=== PATIENT | female | born 1995 | race African-American/Black ===

== ENCOUNTER 2016-07-17 20:56 | Emergency (ER) | payer MEDICAID ==
[~2016-07-17] VITALS: Ht 167.6 cm; Wt 75.0 kg
[~2016-07-17 20:56] MED LIST: FERR-43 PO; PREN-88 PO
[2016-07-17] MEDS ORDERED: IBUPROFEN 600MG TABLET PO STA (23:07)
[2016-07-17] MEDS ORDERED: HYDROCODONE/ACETAMINOPHEN 5/325MG TABLET PO STA (23:07)
[2016-07-17] MEDS ORDERED: ONDANSETRON HCL 4MG TABLET PO ONE (23:15)
[2016-07-17] MEDS ORDERED: IBUPROFEN 800MG TABLET PO NR (23:24)
[2016-07-17 23:27] LABS: BASOPHILS % 1.2 % (0.0-2.0); EOSINOPHILS % 2.1 % (0.0-5.0); HEMATOCRIT. 36.6 % (36.0-48.0); HEMOGLOBIN. 12.2 g/dL (12.0-16.0); LYMPHOCYTES % 40.5 % (20.0-50.0); MEAN CORPUSCULAR HEMOGLOBIN 24.5 pg (28.0-32.0); MEAN CORPUSCULAR VOLUME 73.4 fL (81.0-99.0); MEAN PLATELET VOLUME 7.8 fl (7.4-10.4); MONOCYTES % 5.9 % (2.0-8.0); NEUTROPHILS % 50.3 % (40.0-76.0); PLATELET 373 x1000/uL (130-400); RED BLOOD CELL COUNT 4.98 mill/uL (4.2-5.4); RED CELL DISTRIBUTION WIDTH 15.1 % (11.6-14.6)
[2016-07-17 23:31] LABS: CHLORIDE 106 mEq/L (98-107)
[2016-07-17 23:37] LABS: CLARITY URINE CLOUDY (CLEAR); COLOR URINE ORANGE (YELLOW); GLUCOSE URINE NEGATIVE (NEGATIVE); KETONES URINE NEGATIVE (NEGATIVE); LEUKOCYTE ESTERASE URINE 1+ (NEGATIVE); NITRITE URINE NEGATIVE (NEGATIVE); OCCULT BLOOD URINE 3+ (NEGATIVE); PH URINE 5.5 (4.5-8.0); PROTEIN URINE 2+ (NEGATIVE); SPECIFIC GRAVITY URINE 1.036 (1.005-1.030)
[2016-07-17 23:42] LABS: B-HCG QUANTITATIVE < 1 mIU/mL (<3); CARBON DIOXIDE 28 mEq/L (21-32)
[2016-07-18 00:24] VITALS: BP 127/71
== END 2016-07-18 00:46 | disposition home or self-care (01) ==
LOC: ER 21:16
DX: N39.0 Urinary tract infection, site not specified (principal); J45.909 Unspecified asthma, uncomplicated; Z91.018 Allergy to other foods; Z87.19 Personal history of other diseases of the digestive system
CPT/HCPCS: 36415; 80053; 81001; 81025; 84702; 85025; 99284; Q0162; Z7610

== ENCOUNTER 2016-11-07 09:40 | Emergency (ER) | payer MEDICAID ==
[~2016-11-07] VITALS: Ht 162.6 cm; Wt 97.0 kg
[2016-11-07] MEDS ORDERED: METOCLOPRAMIDE HCL 5MG TABLET PO ONE (11:45)
[2016-11-07] MEDS ORDERED: FLUORESCEIN SODIUM 1MG/STRIP OP ONE (11:45)
[2016-11-07] MEDS ORDERED: TETRACAINE 0.5% OPHTH DROPS 4ML OP ONE (11:45)
[2016-11-07] MEDS ORDERED: KETOROLAC 60MG/2ML VIAL IM ONE (11:45)
[2016-11-07 12:42] VITALS: BP 101/63
== END 2016-11-07 14:17 | disposition home or self-care (01) ==
LOC: ER 10:51
DX: R51 Headache (principal); J45.909 Unspecified asthma, uncomplicated; Z90.49 Acquired absence of other specified parts of digestive tract
CPT/HCPCS: 81025; 96372; 99283; J1885; Z7610; J8597

== ENCOUNTER 2017-02-07 21:23 | Emergency (ER) | payer MEDICAID ==
[~2017-02-07] VITALS: Ht 162.6 cm; Wt 102.5 kg
[2017-02-07 22:31] VITALS: BP 117/81
[2017-02-07] MEDS ORDERED: PREDNISOLONE 15 MG/5 ML ORAL SYRINGE PO ONE (23:30)
[2017-02-07] MEDS ORDERED: KETOROLAC 60MG/2ML VIAL IM ONE (23:30)
== END 2017-02-08 00:31 | disposition home or self-care (01) ==
LOC: ER 21:23
DX: J02.8 Acute pharyngitis due to other specified organisms (principal); J45.909 Unspecified asthma, uncomplicated; Z90.49 Acquired absence of other specified parts of digestive tract
CPT/HCPCS: 87070; 87430; 96372; 99284; J1885

== ENCOUNTER 2017-04-08 11:53 | Emergency (ER) | payer MEDICAID ==
[~2017-04-08] VITALS: Ht 165.1 cm; Wt 110.0 kg
[2017-04-08 13:04] LABS: CLARITY URINE CLOUDY (CLEAR); COLOR URINE DARK YELLOW (YELLOW); KETONES URINE 1+ (NEGATIVE); LEUKOCYTE ESTERASE URINE TRACE (NEGATIVE); NITRITE URINE NEGATIVE (NEGATIVE); OCCULT BLOOD URINE 3+ (NEGATIVE); PH URINE 5.5 (4.5-8.0); PROTEIN URINE 1+ (NEGATIVE); SPECIFIC GRAVITY URINE 1.038 (1.005-1.030)
[2017-04-08] MEDS ORDERED: KETOROLAC 60MG/2ML VIAL IM ONE (13:45)
[2017-04-08] MEDS ORDERED: CEPHALEXIN 500MG CAPSULE PO ONE (13:45)
[2017-04-08 14:10] VITALS: BP 135/77
== END 2017-04-08 14:25 | disposition home or self-care (01) ==
LOC: ER 12:18
DX: N10 Acute pyelonephritis (principal); J45.909 Unspecified asthma, uncomplicated; Z90.49 Acquired absence of other specified parts of digestive tract
CPT/HCPCS: 81003; 81025; 96372; 99283; J1885

== ENCOUNTER 2017-06-16 23:16 | Emergency (ER) | payer MEDICAID ==
[~2017-06-16] VITALS: Ht 167.6 cm; Wt 102.0 kg
[2017-06-17] MEDS ORDERED: KETOROLAC 60MG/2ML VIAL IM ONE (05:15)
[2017-06-17 08:00] VITALS: BP 102/50
== END 2017-06-17 08:20 | disposition home or self-care (01) ==
LOC: ER 23:16
DX: S00.03XA Contusion of scalp, initial encounter (principal); S80.01XA Contusion of right knee, initial encounter; J45.909 Unspecified asthma, uncomplicated; V89.2XXA Person injured in unspecified motor-vehicle accident, traffic, initial encounter; W22.12XA Striking against or struck by front passenger side automobile airbag, initial encounter; Y93.89 Activity, other specified; Y92.89 Other specified places as the place of occurrence of the external cause; Y99.8 Other external cause status
CPT/HCPCS: 71045; 73502; 81025; 96372; 99284; J1885

== ENCOUNTER 2017-11-10 22:01 | Inpatient (IN) | payer MEDICAID ==
[~2017-11-10] VITALS: Ht 172.7 cm; Wt 130.6 kg
[~2017-11-10 22:01] MED LIST changes: -FERR-43 PO; +HYDR-4134 PO; +IBUP-2029 MT; -PREN-88 PO
[2017-11-11] MEDS ORDERED: KETOROLAC 60MG/2ML VIAL IM ONE
[2017-11-11] MEDS ORDERED: ONDANSETRON HCL 4MG/2ML INJ IV STA (01:16)
[2017-11-11] MEDS ORDERED: MORPHINE SULFATE 4 MG/ML CPJ (NOT FOR IM USE) IV STA (01:16)
[2017-11-11] MEDS ORDERED: SODIUM CHLORIDE 0.9% 1,000 ML IV ONE (01:16)
[2017-11-11 02:03] LABS: BASOPHILS % 0.4 % (0.0-2.0); EOSINOPHILS % 1.7 % (0.0-5.0); HEMATOCRIT. 35.1 % (36.0-48.0); HEMOGLOBIN. 11.7 g/dL (12.0-16.0); LYMPHOCYTES % 26.8 % (20.0-50.0); MEAN CORPUSCULAR HEMOGLOBIN 25.3 pg (28.0-32.0); MEAN CORPUSCULAR VOLUME 75.7 fL (81.0-99.0); MEAN PLATELET VOLUME 7.7 fl (7.4-10.4); MONOCYTES % 6.5 % (2.0-8.0); NEUTROPHILS % 64.6 % (40.0-76.0); PLATELET 352 x1000/uL (130-400); RED BLOOD CELL COUNT 4.64 mill/uL (4.2-5.4); RED CELL DISTRIBUTION WIDTH 14.8 % (11.6-14.6)
[2017-11-11 02:13] LABS: CHLORIDE 108 mEq/L (98-107)
[2017-11-11 02:22] LABS: HCG SCREEN NEGATIVE
[2017-11-11 02:56] LABS: CLARITY URINE TURBID (CLEAR); COLOR URINE DARK YELLOW (YELLOW); KETONES URINE TRACE (NEGATIVE); LEUKOCYTE ESTERASE URINE 2+ (NEGATIVE); NITRITE URINE NEGATIVE (NEGATIVE); OCCULT BLOOD URINE 3+ (NEGATIVE); PH URINE 5.5 (4.5-8.0); PROTEIN URINE 2+ (NEGATIVE); SPECIFIC GRAVITY URINE 1.027 (1.005-1.030)
[2017-11-11 03:30] VITALS: BP 122/54
[2017-11-11 04:00] VITALS: BP 102/54
[2017-11-11] MEDS ORDERED: HYDROCODONE/ACETAMINOPHEN 5/325MG TABLET PO PRN (07:15)
[2017-11-11] MEDS ORDERED: ACETAMINOPHEN 325MG TABLET PO PRN (07:15)
[2017-11-11] MEDS ORDERED: ONDANSETRON HCL 4MG/2ML INJ IV PRN (07:15)
[2017-11-11] MEDS ORDERED: PNEUMOCOCCAL 23-VAL P-SAC VAC 0.5 ML IM ONE (08:00)
[2017-11-11] MEDS ORDERED: INFLUENZA VIRUS VACCINE(AFLURIA) 0.5ML SYR IM ONE (10:00)
[2017-11-11] MEDS: ENOXAPARIN 40MG/0.4ML SYR SUBCUT SCH ×2 (10:07→21:31)
[2017-11-11] MEDS: MORPHINE SULFATE 4 MG/ML CPJ (NOT FOR IM USE) IV PRN ×2 (10:35→21:39)
[2017-11-11 14:53] LABS: *AMPHETAMINES SCREEN URINE NEGATIVE (NEGATIVE); *BARBITURATES SCREEN URINE NEGATIVE (NEGATIVE); *BENZODIAZEPINES SCREEN URINE NEGATIVE (NEGATIVE); *COCAINE SCREEN URINE NEGATIVE (NEGATIVE); METHADONE URINE SCREEN NEGATIVE (NEGATIVE); OPIATES URINE SCREEN NEGATIVE (NEGATIVE)
[2017-11-11 14:54] LABS: CANNABINOID URINE SCREEN NEGATIVE (NEGATIVE); PHENCYCLIDINE URINE SCREEN NEGATIVE (NEGATIVE)
[2017-11-11 16:00] VITALS: BP 100/47
[2017-11-11 20:00] VITALS: BP 111/62
[2017-11-12] VITALS: BP 106/65
[2017-11-12 04:00] VITALS: BP 116/65
[2017-11-12] MEDS: MORPHINE SULFATE 4 MG/ML CPJ (NOT FOR IM USE) IV PRN ×2 (04:43→10:29)
[2017-11-12 07:44] LABS: BASOPHILS % 0.4 % (0.0-2.0); EOSINOPHILS % 3.1 % (0.0-5.0); HEMATOCRIT. 31.4 % (36.0-48.0); HEMOGLOBIN. 10.5 g/dL (12.0-16.0); LYMPHOCYTES % 45.4 % (20.0-50.0); MEAN CORPUSCULAR HEMOGLOBIN 25.4 pg (28.0-32.0); MEAN CORPUSCULAR VOLUME 75.9 fL (81.0-99.0); MEAN PLATELET VOLUME 7.9 fl (7.4-10.4); MONOCYTES % 5.1 % (2.0-8.0); PLATELET 324 x1000/uL (130-400); RED BLOOD CELL COUNT 4.14 mill/uL (4.2-5.4)
[2017-11-12 08:00] VITALS: BP 103/50
[2017-11-12 08:45] LABS: CHLORIDE 106 mEq/L (98-107)
[2017-11-12] MEDS: ENOXAPARIN 40MG/0.4ML SYR SUBCUT SCH (10:15)
[2017-11-12 12:00] VITALS: BP 106/55
[2017-11-12 12:38] VITALS: BP 106/55
== END 2017-11-12 15:56 | disposition home or self-care (01) | DRG 347 ==
LOC: ER 22:01 → 8WST 11-11 01:18 → ENRESERV 11-11 01:38
PROVIDERS: ADMIT Internal Medicine; ATTEND Internal Medicine
DX: M54.5 Low back pain (principal); Z68.41 Body mass index [BMI] 40.0-44.9, adult; E66.9 Obesity, unspecified; J45.909 Unspecified asthma, uncomplicated; R20.2 Paresthesia of skin; R51 Headache; R82.71 Bacteriuria; N39.0 Urinary tract infection, site not specified; W01.0XXA Fall on same level from slipping, tripping and stumbling without subsequent striking against object, initial encounter; Y93.89 Activity, other specified; Z87.828 Personal history of other (healed) physical injury and trauma; Y92.89 Other specified places as the place of occurrence of the external cause; Y99.8 Other external cause status; Z90.49 Acquired absence of other specified parts of digestive tract; Z71.3 Dietary counseling and surveillance; Z91.018 Allergy to other foods
CPT/HCPCS: 36415; 70450; 72040; 72070; 72100; 72148; 80048; 80053; 80305; 81003; 81025; 84703; 85025; 87086; 96361; 96372; 96374; 96375; 97162; 97165; 99285; J1650; J1885; J2270; J2405; J7030

== ENCOUNTER 2018-03-05 00:21 | Emergency (ER) | payer MEDICAID ==
[~2018-03-05] VITALS: Ht 167.6 cm; Wt 91.0 kg
[2018-03-05] MEDS ORDERED: ACETAMINOPHEN 325MG TABLET PO ONE (01:15)
[2018-03-05] MEDS ORDERED: KETOROLAC 60MG/2ML VIAL IM ONE (01:15)
[2018-03-05] MEDS ORDERED: HYDROCODONE/ACETAMINOPHEN 5/325MG TABLET PO ONE (01:30)
[2018-03-05 02:05] VITALS: BP 127/82
== END 2018-03-05 02:08 | disposition home or self-care (01) ==
LOC: ER 00:39
DX: S02.5XXA Fracture of tooth (traumatic), initial encounter for closed fracture (principal); J45.909 Unspecified asthma, uncomplicated; X58.XXXA Exposure to other specified factors, initial encounter; Y93.89 Activity, other specified; Y92.89 Other specified places as the place of occurrence of the external cause; Y99.8 Other external cause status; Z98.890 Other specified postprocedural states; Z91.018 Allergy to other foods
CPT/HCPCS: 81025; 96372; 99283; J1885

== ENCOUNTER 2021-08-24 00:47 | Emergency (ER) | payer MEDICAID ==
[~2021-08-24] VITALS: Ht 162.6 cm; Wt 107.0 kg
[2021-08-24 04:30] VITALS: BP 140/80
== END 2021-08-24 05:04 | disposition home or self-care (01) ==
LOC: ER 00:47
DX: O26.891 Other specified pregnancy related conditions, first trimester (principal); T59.3X3A Toxic effect of lacrimogenic gas, assault, initial encounter; T26.92XA Corrosion of left eye and adnexa, part unspecified, initial encounter; J45.909 Unspecified asthma, uncomplicated; E89.0 Postprocedural hypothyroidism; Z3A.10 10 weeks gestation of pregnancy; Z91.018 Allergy to other foods; T26.91XA Corrosion of right eye and adnexa, part unspecified, initial encounter; Y93.89 Activity, other specified; Y92.89 Other specified places as the place of occurrence of the external cause
CPT/HCPCS: 76801; 99281

== ENCOUNTER 2021-09-13 09:43 | Emergency (ER) | payer MEDICAID ==
[~2021-09-13] VITALS: Ht 162.6 cm; Wt 107.0 kg
[2021-09-13] MEDS ORDERED: ACETAMINOPHEN 325MG TABLET PO ONE (10:45)
[2021-09-13] MEDS ORDERED: LIDOCAINE 5% PATCH TOP SCH (10:45)
[2021-09-13 12:42] LABS: BASOPHILS % 0.4 % (0.0-2.0); EOSINOPHILS % 1.2 % (0.0-5.0); HEMATOCRIT. 34.4 % (36.0-48.0); HEMOGLOBIN. 11.3 g/dL (12.0-16.0); LYMPHOCYTES % 30.5 % (20.0-50.0); MEAN CORPUSCULAR VOLUME 73.2 fL (81.0-99.0); MEAN PLATELET VOLUME 7.8 fl (7.4-10.4); MONOCYTES % 5.8 % (2.0-8.0); NEUTROPHILS % 62.1 % (40.0-76.0); PLATELET 332 x1000/uL (130-400); RED CELL DISTRIBUTION WIDTH 16.4 % (11.6-14.6)
[2021-09-13 12:47] LABS: CHLORIDE 102 mEq/L (98-107)
[2021-09-13 13:12] LABS: B-HCG QUANTITATIVE 32770 mIU/mL (<3)
[2021-09-13] MEDS ORDERED: MIDAZOLAM HCL 2 MG/2 ML VIAL IV ONE (17:30)
[2021-09-13 21:09] LABS: CLARITY URINE CLEAR (CLEAR); COLOR URINE DARK YELLOW (YELLOW); KETONES URINE 1+ (NEGATIVE); LEUKOCYTE ESTERASE URINE NEGATIVE (NEGATIVE); NITRITE URINE NEGATIVE (NEGATIVE); OCCULT BLOOD URINE NEGATIVE (NEGATIVE); PH URINE 5.5 (4.5-8.0); PROTEIN URINE 1+ (NEGATIVE); SPECIFIC GRAVITY URINE 1.037 (1.005-1.030)
[2021-09-13 23:55] VITALS: BP 125/68
== END 2021-09-14 00:19 | disposition left against medical advice (07) ==
LOC: ER 09:55 → CANBEDREQ 09-14 00:46
DX: O26.891 Other specified pregnancy related conditions, first trimester (principal); Z3A.13 13 weeks gestation of pregnancy
CPT/HCPCS: 36415; 72100; 73502; 73552; 76801; 76817; 80053; 81003; 84702; 85025; 93971; 96374; 99285; J2250

== ENCOUNTER 2021-11-14 07:03 | Emergency (ER) | payer MEDICAID ==
[~2021-11-14] VITALS: Ht 162.6 cm; Wt 103.0 kg
[2021-11-14 07:08] VITALS: BP 104/65
[2021-11-14] MEDS ORDERED: ACETAMINOPHEN 325MG TABLET PO ONE (09:00)
[2021-11-14] MEDS ORDERED: iron (16:53)
[2021-11-14] MEDS ORDERED: prenatal (16:53)
[2021-11-14] MEDS ORDERED: ACET-2708 MT (20:25)
== END 2021-11-14 11:12 | disposition home or self-care (01) ==
LOC: ER 07:03
DX: O26.892 Other specified pregnancy related conditions, second trimester (principal); M25.511 Pain in right shoulder; J45.909 Unspecified asthma, uncomplicated; Z3A.21 21 weeks gestation of pregnancy; Z90.49 Acquired absence of other specified parts of digestive tract; Z88.5 Allergy status to narcotic agent; Z88.0 Allergy status to penicillin; Z91.018 Allergy to other foods
CPT/HCPCS: 73030; 99283; A4565

== ENCOUNTER 2021-11-14 16:44 | Emergency (ER) | payer MEDICAID ==
[~2021-11-14] VITALS: Ht 165.1 cm; Wt 116.0 kg
[2021-11-14 16:53] VITALS: BP 82/44
[2021-11-14] MEDS ORDERED: prenatal (16:53)
[2021-11-14] MEDS ORDERED: iron (16:53)
[2021-11-14] MEDS ORDERED: SODIUM CHLORIDE 0.9% 1,000 ML IV ONE (17:30)
[2021-11-14 17:59] LABS: EOSINOPHILS % 1.9 % (0.0-5.0); HEMATOCRIT. 32.9 % (36.0-48.0); HEMOGLOBIN. 11.3 g/dL (12.0-16.0); LYMPHOCYTES % 21.3 % (20.0-50.0); MEAN CORPUSCULAR HEMOGLOBIN 25.1 pg (28.0-32.0); MEAN CORPUSCULAR VOLUME 72.7 fL (81.0-99.0); MEAN PLATELET VOLUME 8.1 fl (7.4-10.4); MONOCYTES % 4.9 % (2.0-8.0); NEUTROPHILS % 70.9 % (40.0-76.0); PLATELET 313 x1000/uL (130-400); RED BLOOD CELL COUNT 4.52 mill/uL (4.2-5.4); RED CELL DISTRIBUTION WIDTH 15.4 % (11.6-14.6)
[2021-11-14 18:03] LABS: CHLORIDE 106 mEq/L (98-107)
[2021-11-14 18:27] LABS: B-HCG QUANTITATIVE 9320 mIU/mL (<3)
[2021-11-14] MEDS ORDERED: ACETAMINOPHEN 325MG TABLET PO NR (18:30)
[2021-11-14] MEDS ORDERED: ACET-2708 MT (20:25)
== END 2021-11-14 21:04 | disposition home or self-care (01) ==
LOC: ER 16:44
DX: O26.892 Other specified pregnancy related conditions, second trimester (principal); M25.511 Pain in right shoulder; R10.31 Right lower quadrant pain; M79.601 Pain in right arm; O24.912 Unspecified diabetes mellitus in pregnancy, second trimester; J45.909 Unspecified asthma, uncomplicated; Z90.49 Acquired absence of other specified parts of digestive tract; E89.0 Postprocedural hypothyroidism; Z88.5 Allergy status to narcotic agent; Z88.0 Allergy status to penicillin; Z91.018 Allergy to other foods; Z98.1 Arthrodesis status; W01.0XXA Fall on same level from slipping, tripping and stumbling without subsequent striking against object, initial encounter; Y93.89 Activity, other specified; Y92.012 Bathroom of single-family (private) house as the place of occurrence of the external cause; Z3A.21 21 weeks gestation of pregnancy
CPT/HCPCS: 36415; 76805; 80053; 83690; 84702; 85025; 86850; 86900; 86901; 96360; 99284; J7030

== ENCOUNTER 2021-11-14 21:10 | Observation (INO) | payer MEDICAID ==
[~2021-11-14] VITALS: Ht 152.4 cm; Wt 103.4 kg
[~2021-11-14 21:10] MED LIST changes: +ACET-2708 MT; -HYDR-4134 PO; -IBUP-2029 MT; +iron; +prenatal
== END 2021-11-14 23:15 | disposition home or self-care (01) ==
LOC: INTOOBSV 21:10 → 8 EST LDRP 21:10
PROVIDERS: ADMIT Obstetrics & Gynecology; ATTEND Obstetrics & Gynecology
DX: O26.892 Other specified pregnancy related conditions, second trimester (principal); M25.511 Pain in right shoulder; H53.8 Other visual disturbances; W18.2XXA Fall in (into) shower or empty bathtub, initial encounter; Y93.E1 Activity, personal bathing and showering; Y92.091 Bathroom in other non-institutional residence as the place of occurrence of the external cause; Y99.8 Other external cause status
CPT/HCPCS: 59025; G0378; 99281

== ENCOUNTER 2022-01-19 10:53 | Observation (INO) | payer OTHER ==
[~2022-01-19] VITALS: Ht 165.1 cm; Wt 108.9 kg
[2022-01-19 12:21] LABS: CLARITY URINE CLEAR (CLEAR); COLOR URINE YELLOW (YELLOW); KETONES URINE 1+ (NEGATIVE); LEUKOCYTE ESTERASE URINE TRACE (NEGATIVE); NITRITE URINE NEGATIVE (NEGATIVE); OCCULT BLOOD URINE NEGATIVE (NEGATIVE); PH URINE 6.5 (4.5-8.0); PROTEIN URINE 1+ (NEGATIVE); SPECIFIC GRAVITY URINE 1.028 (1.005-1.030)
== END 2022-01-19 15:00 | disposition home or self-care (01) ==
LOC: 8 EST A/PP 10:53
PROVIDERS: ADMIT Obstetrics & Gynecology; ATTEND Obstetrics & Gynecology
DX: O26.853 Spotting complicating pregnancy, third trimester (principal); O99.891 Other specified diseases and conditions complicating pregnancy; M54.9 Dorsalgia, unspecified; O26.893 Other specified pregnancy related conditions, third trimester; R10.2 Pelvic and perineal pain; Z3A.30 30 weeks gestation of pregnancy
CPT/HCPCS: 59025; 76805; 76818; 81003; G0378; 99281

== ENCOUNTER 2022-03-17 18:02 | Inpatient (IN) | payer OTHER ==
[~2022-03-17] VITALS: Ht 162.6 cm; Wt 103.4 kg
[2022-03-17] MEDS ORDERED: DEXT 5%/LR + PITOCIN 20UNITS/L 1,000 ML IV SCH (18:15)
[2022-03-17] MEDS ORDERED: METHYLERGONOVINE MALEATE 0.2 MG/ML IM PRN (18:30)
[2022-03-17] MEDS ORDERED: LACTATED RINGERS 1,000 ML IV SCH (18:30)
[2022-03-17] MEDS ORDERED: OXYTOCIN 30 UNITS/500ML NS PMX 500 ML IV SCH ×2 (18:30→18:45)
[2022-03-17] MEDS ORDERED: BUTORPHANOL TARTRATE 2 MG/ML VIAL IV PRN (18:30)
[2022-03-17] MEDS ORDERED: LIDOCAINE HCL 1% 20ML VIAL (Pyxis) INJ INFIL SCH (18:30)
[2022-03-17] MEDS ORDERED: IBUPROFEN 400MG TABLET PO PRN (19:15)
[2022-03-17] MEDS ORDERED: RHO(D) IMMUNE GLOBULIN 300 MCG/SYR IM PRN (19:15)
[2022-03-17 20:19] LABS: BASOPHILS % 0.3 % (0.0-2.0); EOSINOPHILS % 0.2 % (0.0-5.0); HEMATOCRIT. 30.7 % (36.0-48.0); HEMOGLOBIN. 9.8 g/dL (12.0-16.0); MEAN CORPUSCULAR VOLUME 68.7 fL (81.0-99.0); MEAN PLATELET VOLUME 8.5 fl (7.4-10.4); NEUTROPHILS % 82.5 % (40.0-76.0); PLATELET 304 x1000/uL (130-400); RED BLOOD CELL COUNT 4.47 mill/uL (4.2-5.4); RED CELL DISTRIBUTION WIDTH 17.4 % (11.6-14.6)
[2022-03-17 20:50] LABS: PLATELET ESTIMATE NORMAL
[2022-03-17 21:00] LABS: HEPATITIS B SURFACE ANTIGEN NEGATIVE
[2022-03-17] MEDS: IBUPROFEN 800MG TABLET PO PRN (21:02)
[2022-03-17 21:30] VITALS: BP 120/69
[2022-03-18 01:36] VITALS: BP 119/70
[2022-03-18] MEDS: IBUPROFEN 800MG TABLET PO PRN ×2 (03:46→23:33)
[2022-03-18 05:28] LABS: *AMPHETAMINES SCREEN URINE NEGATIVE (NEGATIVE); *BARBITURATES SCREEN URINE NEGATIVE (NEGATIVE); *BENZODIAZEPINES SCREEN URINE NEGATIVE (NEGATIVE); *COCAINE SCREEN URINE NEGATIVE (NEGATIVE); CANNABINOID URINE SCREEN NEGATIVE (NEGATIVE); METHADONE URINE SCREEN NEGATIVE (NEGATIVE); PHENCYCLIDINE URINE SCREEN NEGATIVE (NEGATIVE)
[2022-03-18 05:32] LABS: OPIATES URINE SCREEN PRESUMTIVE POSITIVE (NEGATIVE)
[2022-03-18 07:40] LABS: BASOPHILS % 0.3 % (0.0-2.0); EOSINOPHILS % 0.9 % (0.0-5.0); HEMATOCRIT. 27.6 % (36.0-48.0); HEMOGLOBIN. 9.1 g/dL (12.0-16.0); LYMPHOCYTES % 20.8 % (20.0-50.0); MEAN CORPUSCULAR HEMOGLOBIN 22.5 pg (28.0-32.0); MEAN CORPUSCULAR VOLUME 68.4 fL (81.0-99.0); MEAN PLATELET VOLUME 8.1 fl (7.4-10.4); MONOCYTES % 6.6 % (2.0-8.0); NEUTROPHILS % 71.4 % (40.0-76.0); PLATELET 270 x1000/uL (130-400); RED BLOOD CELL COUNT 4.04 mill/uL (4.2-5.4); RED CELL DISTRIBUTION WIDTH 17.6 % (11.6-14.6)
[2022-03-18 08:30] VITALS: BP 93/55
[2022-03-18 16:30] VITALS: BP 116/70
[2022-03-18 20:00] VITALS: BP 119/70
[2022-03-19 04:00] VITALS: BP 110/56
[2022-03-19 08:00] VITALS: BP 101/47
[2022-03-19 09:07] LABS: HIV SCREEN 4G Non Reactive (Non Reactive)
[2022-03-19 09:56] VITALS: BP 101/47
[2022-03-19] MEDS: IBUPROFEN 800MG TABLET PO PRN (09:56)
== END 2022-03-19 16:20 | disposition home or self-care (01) | DRG 561 ==
LOC: 8 EST LDRP 18:02 → 8EST 21:15
PROVIDERS: ADMIT Obstetrics & Gynecology; ATTEND Obstetrics & Gynecology
DX: Z39.0 Encounter for care and examination of mother immediately after delivery (principal); J45.909 Unspecified asthma, uncomplicated; Z20.822 Contact with and (suspected) exposure to COVID-19; Z88.0 Allergy status to penicillin
CPT/HCPCS: 36415; 80305; 80361; 85025; 86592; 86762; 86850; 86900; 87340; 87389; 87426; J2590

== ENCOUNTER 2022-09-10 02:36 | Emergency (ER) | payer MEDICAID ==
[~2022-09-10] VITALS: Ht 30.5 cm; Wt 0.5 kg
[~2022-09-10 02:36] MED LIST changes: -iron; -prenatal
[2022-09-10] MEDS ORDERED: TETRACAINE 0.5% OPHTH DROPS 4ML BOTHEYE ONE (03:15)
[2022-09-10] MEDS ORDERED: FLUORESCEIN SODIUM 1MG/STRIP BOTHEYE ONE (03:15)
[2022-09-10] MEDS ORDERED: FLUORESCEIN SODIUM 1MG/STRIP BOTHEYE NR (05:45)
[2022-09-10] MEDS ORDERED: TETRACAINE 0.5% OPHTH DROPS 4ML BOTHEYE NR (05:45)
[2022-09-10 08:29] VITALS: BP 118/69; PULSE 81; RESP 18; TEMP 98.6
[2022-09-10] MEDS ORDERED: GENT5DRO LEFTEYE (09:59)
== END 2022-09-10 10:22 | disposition home or self-care (01) ==
LOC: ER 02:43
DX: S05.02XA Injury of conjunctiva and corneal abrasion without foreign body, left eye, initial encounter (principal); E11.9 Type 2 diabetes mellitus without complications; J45.909 Unspecified asthma, uncomplicated; Z88.0 Allergy status to penicillin; Z91.018 Allergy to other foods; Z88.5 Allergy status to narcotic agent; Z90.49 Acquired absence of other specified parts of digestive tract; W26.0XXA Contact with knife, initial encounter; X58.XXXA Exposure to other specified factors, initial encounter; Y93.89 Activity, other specified; Y92.89 Other specified places as the place of occurrence of the external cause; Y99.8 Other external cause status
CPT/HCPCS: 70486; 81025; 99284

== ENCOUNTER 2022-12-18 17:55 | Emergency (ER) | payer MEDICAID ==
[~2022-12-18] VITALS: Ht 162.6 cm; Wt 107.0 kg
[~2022-12-18 17:55] MED LIST changes: +GENT5DRO LEFTEYE
[2022-12-18 17:59] VITALS: BP 162/83; RESP 18; O2SAT 100
[2022-12-18 18:01] VITALS: PULSE 99
[2022-12-18 18:30] VITALS: TEMP 97.9
[2022-12-18] MEDS ORDERED: ACETAMINOPHEN 325MG TABLET PO ONE (18:30)
== END 2022-12-18 23:39 | disposition home or self-care (01) ==
LOC: ER 17:55
DX: S60.212A Contusion of left wrist, initial encounter (principal); J45.909 Unspecified asthma, uncomplicated; E11.9 Type 2 diabetes mellitus without complications; Z90.49 Acquired absence of other specified parts of digestive tract; Z98.890 Other specified postprocedural states; Z88.0 Allergy status to penicillin; Z91.018 Allergy to other foods; Z88.8 Allergy status to other drugs, medicaments and biological substances; W18.30XA Fall on same level, unspecified, initial encounter; Y93.89 Activity, other specified; Y92.89 Other specified places as the place of occurrence of the external cause; Y99.8 Other external cause status
CPT/HCPCS: 36415; 73110; 76801; 84702; 99284

== ENCOUNTER 2022-12-31 19:50 | Emergency (ER) | payer MEDICAID ==
[~2022-12-31] VITALS: Ht 170.2 cm; Wt 102.0 kg
[2022-12-31 19:59] VITALS: O2SAT 96
[2022-12-31] MEDS ORDERED: IPRATROPIUM BROMIDE (0.02%) 0.5MG/2.5ML NEB HHN ONE (20:15)
[2022-12-31] MEDS ORDERED: ALBUTEROL (0.083%) 2.5MG/3ML NEB HHN ONE (20:15)
[2022-12-31] MEDS ORDERED: DEXAMETHASONE 10 MG/ML VIAL IM ONE (20:15)
[2022-12-31] MEDS ORDERED: ALBU6.7H15 INH (22:39)
[2022-12-31 23:27] VITALS: BP 120/74; PULSE 95; RESP 19; TEMP 98.4
== END 2022-12-31 23:30 | disposition home or self-care (01) ==
LOC: ER 19:50
DX: J45.901 Unspecified asthma with (acute) exacerbation (principal); Z20.822 Contact with and (suspected) exposure to COVID-19; Z88.0 Allergy status to penicillin; Z88.5 Allergy status to narcotic agent; Z91.018 Allergy to other foods
CPT/HCPCS: 87804 ×2; 71045; 94640; 96372; 99284; 87426; J1100; Z7610 ×3; C9803

== ENCOUNTER 2023-03-03 22:20 | Emergency (ER) | payer MEDICAID, OTHER ==
[~2023-03-03] VITALS: Ht 165.1 cm; Wt 110.0 kg
[~2023-03-03 22:20] MED LIST changes: +ALBU6.7H15 INH
[2023-03-03 22:38] VITALS: BP 132/84; PULSE 86; RESP 18; TEMP 98.5; O2SAT 99
[2023-03-03] MEDS ORDERED: ACETAMINOPHEN 500MG TABLET PO ONE (23:15)
[2023-03-04] MEDS ORDERED: ACET-2708 MT (02:01)
== END 2023-03-04 11:59 | disposition home or self-care (01) ==
LOC: ER 22:20
DX: S82.101A Unspecified fracture of upper end of right tibia, initial encounter for closed fracture (principal); D64.9 Anemia, unspecified; F41.9 Anxiety disorder, unspecified; Z79.899 Other long term (current) drug therapy; W18.39XA Other fall on same level, initial encounter; Y93.89 Activity, other specified; Y92.89 Other specified places as the place of occurrence of the external cause; Y99.8 Other external cause status
CPT/HCPCS: 73562; 99283; Z7610; L1830